=== PATIENT | female | born 1985 | race American Indian/Alaskan Native ===

== ENCOUNTER 2017-04-05 21:18 | Emergency (ER) | payer BC ==
[2017-04-05] MEDS ORDERED: MORPHINE SULFATE 10 MG/ML INJ IV ONE (21:46)
[2017-04-05] MEDS ORDERED: ONDANSETRON HCL INJ/PF 4 MG/2 ML SDV IV ONE (21:46)
[2017-04-05] MEDS ORDERED: NORMAL SALINE 1000 ML 1,000 ML IV ONE (21:46)
--- NOTE | 2017-04-05 21:51 | ER Document Report ---
ED GI/ - General Mode of Arrival: Ambulatory Information source: Patient TRAVEL OUTSIDE OF THE [place] IN LAST 30 DAYS: No - HPI Patient complains to provider of: Abdominal pain Associated symptoms: Other - See above <CALLI LEE - Last Filed: 04/05/17 22:06> <HAMIDA YANES - Last Filed: 04/06/17 00:17> - General Chief Complaint: Abdominal Pain Stated Complaint: ABDOMINAL PAIN Notes: Patient is a 31 year old female who presents to the emergency department complaining of left lower quadrant abdominal pain onset 3 days ago. Patient states the pain has been worsening and she started vomiting this morning with the last episode about 30 minutes prior to arrival. Patient denies nausea and believes the vomiting is due to the pain. Patient's last menstrual cycle was 3 months ago. Patient is currently taking a control pill and metronidazole gel for BV. Patient denies a history of ovarian cysts. (CALLI LEE) - Related Data Allergies/Adverse Reactions: Penicillins Allergy (Verified 04/05/17 21:24) Past Medical History - General Information source: Patient - Social History Smoking Status: Current Every Day Smoker Cigarette use (# per day): Yes - 2 Family History: Reviewed & Not Pertinent Patient has suicidal ideation: No Patient has homicidal ideation: No - Medical History Medical History: Negative Surgical Hx: Negative <CALLI LEE - Last Filed: 04/05/17 22:06> Review of Systems - Review of Systems Constitutional: No symptoms reported EENT: No symptoms reported Cardiovascular: No symptoms reported Respiratory: No symptoms reported Gastrointestinal: See HPI, Abdominal pain, Vomiting. denies: Nausea Genitourinary: No symptoms reported Female Genitourinary: No symptoms reported Musculoskeletal: No symptoms reported Skin: No symptoms reported Hematologic/Lymphatic: No symptoms reported Neurological/Psychological: No symptoms reported -: Yes All other systems reviewed and negative <CALLI LEE - Last Filed: 04/05/17 22:06> Physical Exam - Vital signs Interpretation: Normal - General General appearance: Alert, Other - appears uncomfortable - HEENT Head: Normocephalic, Atraumatic - Respiratory Respiratory status: No respiratory distress Chest status: Nontender Breath sounds: Normal Chest palpation: Normal - Cardiovascular Rhythm: Regular Heart sounds: Normal auscultation Murmur: No - Abdominal Inspection: Normal Distension: No distension Bowel sounds: Normal Tenderness: Tender - Exquisitely tender to palpation of left pelvic area. Not tender on the right but patient remained tense during exam so difficult to tell , Guarding Organomegaly: No organomegaly - Extremities General upper extremity: Normal inspection General lower extremity: Normal inspection - Neurological Neuro grossly intact: Yes Cognition: Normal Orientation: AAOx4 [place] Coma Scale Eye Opening: Spontaneous [place] Coma Scale Verbal: Oriented [place] Coma Scale Motor: Obeys Commands [place] Coma Scale Total: 15 Speech: Normal - Psychological Associated symptoms: Normal affect, Normal mood - Skin Skin Temperature: Warm Skin Moisture: Dry Skin Color: Normal <CALLI LEE - Last Filed: 04/05/17 22:06> - Genitourinary External exam: Normal Speculum exam: Cervix closed, Vaginal discharge - Heavy cottage cheese type vaginal discharge. No cervical discharge noted within the other discharge was wiped away. Vaginal bleeding: None Bimanuel exam: Cervical motion tender - Cervical motion and palpation tenderness., Adnexal tenderness - Left adnexa is exquisitely tender, right side is not tender. <HAMIDA YANES - Last Filed: 04/06/17 00:17> - Vital signs Vitals: Temp Pulse Resp BP Pulse Ox 97.9 F 106 H 18 147/94 H 98 04/05/17 21:21 04/05/17 21:21 04/05/17 21:21 04/05/17 21:21 04/05/17 21:21 Course - Laboratory Result Diagrams: 04/05/17 22:06 04/05/17 22:06 - Diagnostic Test Radiology reviewed: Image reviewed, Reports reviewed - Ultrasound had difficulty visualizing the ovaries, but there was no obvious abnormality. <HAMIDA YANES - Last Filed: 04/06/17 00:17> - Vital Signs Vital signs: Temp Pulse Resp BP Pulse Ox 97.9 F 106 H 18 147/94 H 98 04/05/17 21:21 04/05/17 21:21 04/05/17 21:21 04/05/17 21:21 04/05/17 21:21 - Laboratory Laboratory results interpreted by tn: 04/05/17 04/05/17 04/05/17 22:06 22:06 23:00 WBC 11.3 H ALT 62 H Urine Urobilinogen 2.0 H Discharge <CALLI LEE - Last Filed: 04/05/17 22:06> <HAMIDA YANES - Last Filed: 04/06/17 00:17> - Discharge Clinical Impression: Pelvic inflammatory disease (PID) Condition: Stable Disposition: HOME, SELF-CARE Additional Instructions: Pelvic Inflammatory Disease: You most likely have pelvic inflammatory disease (PID). This is an infection of the fallopian tubes and surrounding areas of the pelvis. Symptoms are usually pelvic pain and discharge. The infection can do permanent damage to the tubes and ovaries. It should be taken very seriously. Treatment is antibiotics, which may be given by vein or by injection if the infection seems serious. It's important that you receive all recommended medication. Condoms help prevent spread of this infection to others. If a culture shows gonorrhea or chlamydia organisms, the law requires that this be reported to the health department. Call the doctor or return at once if you develop increasing fever, rash, severe pelvic pain, vaginal bleeding (other than your period), or problems with your bladder or bowels. TAKE THE MEDICATION PRESCRIBED. IF THE CULTURES ARE POSITIVE, YOU WILL BE NOTIFIED. FOLLOW UP WITH [facility] OR YOUR PRIMARY CARE PROVIDER IF NOT IMPROVING. RETURN TO THE EMERGENCY ROOM IF ANY NEW OR WORSENING SYMPTOMS. Prescriptions: Doxycycline Hyclate 100 mg PO BID #14 tablet Hydrocodone/Acetaminophen [Hydrocodon-Acetaminophen 5-325] 1 each PO Q4 PRN #15 tablet PRN Reason: Referrals: [facility] [Provider Group] - Follow up as needed Scribe Attestation: 04/06/17 00:17 I personally performed the services described in the documentation, reviewed and edited the documentation which was dictated to the scribe in my presence, and it accurately records my words and actions. (HAMIDA YANES) Scribe Documentation - Scribe Written by Michael:: michael Cook, 04/05/17, 0346 acting as scribe for :: Betsy <CALLI LEE - Last Filed: 04/05/17 22:06>
[2017-04-05 22:32] LABS: ABSOLUTE BASOPHILS # (AUTO) 0.1 10^3/uL (0.0-0.2); ABSOLUTE EOSINOPHILS # (AUTO) 0.1 10^3/uL (0.0-0.6); ABSOLUTE LYMPHOCYTES (AUTO) 2.6 10^3/uL (0.5-4.7); ABSOLUTE MONOCYTES (AUTO) 0.8 10^3/uL (0.1-1.4); ABSOLUTE NEUT (AUTO) 7.8 10^3/uL (1.7-8.2); EOSINOPHILS % (AUTO) 0.8 % (0-6); HEMATOCRIT 38.3 % (36.0-47.0); HEMOGLOBIN 12.9 g/dL (12.0-15.5); HGB HCT DIFFERENCE 0.4; LYMPHOCYTES % (AUTO) 22.7 % (13-45); MEAN CORPUSCULAR HEMOGLOBIN 30.8 pg (27.0-33.4); MEAN CORPUSCULAR HGB CONC 33.5 g/dL (32.0-36.0); MEAN CORPUSCULAR VOLUME 92 fl (80-97); MONOCYTES % (AUTO) 6.8 % (3-13); RED BLOOD COUNT 4.18 10^6/uL (3.72-5.28); RED CELL DISTRIBUTION WIDTH 13.3 % (11.5-14.0); SEGMENTED NEUTROPHILS % (AUTO) 68.7 % (42-78); WHITE BLOOD COUNT 11.3 10^3/uL (4.0-10.5)
[2017-04-05 22:49] LABS: ALANINE AMINOTRANSFERASE 62 U/L (9-52); ALBUMIN 3.9 g/dL (3.5-5.0); ALKALINE PHOSPHATASE 58 U/L (38-126); ANION GAP 11 (5-19); ASPARTATE AMINO TRANSFERASE 35 U/L (14-36); BILIRUBIN,DIRECT 0.3 mg/dL (0.0-0.4); BILIRUBIN,TOTAL 0.9 mg/dL (0.2-1.3); BLOOD UREA NITROGEN 7 mg/dL (7-20); CALCIUM 9.6 mg/dL (8.4-10.2); CARBON DIOXIDE 25 mmol/L (22-30); CHLORIDE 105 mmol/L (98-107); CREATININE RESULT 0.73 mg/dL (0.52-1.25); GLUCOSE 80 mg/dL (75-110); POTASSIUM 4.3 mmol/L (3.6-5.0); SODIUM 140.5 mmol/L (137-145); TOTAL PROTEIN 6.7 g/dL (6.3-8.2)
[2017-04-05 23:29] LABS: APPEARANCE,URINE CLEAR; BILIRUBIN,URINE NEGATIVE (NEGATIVE); GLUCOSE, URINE NEGATIVE (NEGATIVE); KETONES,URINE NEGATIVE (NEGATIVE); LEUKOCYTE ESTERASE,URINE NEGATIVE (NEGATIVE); NITRITE,URINE NEGATIVE (NEGATIVE); PROTEIN,URINE NEGATIVE (NEGATIVE); URINE SPECIFIC GRAVITY 1.014
[2017-04-06] MEDS ORDERED: AZITHROMYCIN 250 MG TABLET PO ONE (00:12)
[2017-04-06] MEDS ORDERED: HYDROCODONE/ACETAMINOPHEN 5-325 MG 6 TAB/DSPK PO PRN (00:13)
[2017-04-06 01:07] VITALS: BP 118/76
[2017-04-06 01:41] LABS: CHLAM PCR NOT DETECTED (NOT DETECT)
== END 2017-04-06 01:09 | disposition home or self-care (01) ==
LOC: ER 21:18
DX: N73.9 Female pelvic inflammatory disease, unspecified (principal); N76.0 Acute vaginitis; B96.89 Other specified bacterial agents as the cause of diseases classified elsewhere; R10.32 Left lower quadrant pain; R11.11 Vomiting without nausea; Z79.3 Long term (current) use of hormonal contraceptives; Z88.0 Allergy status to penicillin; F17.210 Nicotine dependence, cigarettes, uncomplicated
CPT/HCPCS: 99284; 96374; 96375; 36415; 87210; 84703; 85025; 80053; 81001; 87491; 87591; 76830; 93976; J2270; J2405

== ENCOUNTER 2018-02-23 00:22 | Emergency (ER) | payer SELFPAY ==
[2018-02-23] MEDS ORDERED: METHYLPREDNISOLONE INJ 125 MG/2 ML SDV IV ONE (02:17)
[2018-02-23] MEDS ORDERED: IPRATROPIUM/ALBUTEROL 0.5-2.5 MG/3 ML AMPUL NEB ONE ×2 (02:17)
--- NOTE | 2018-02-23 02:20 | ER Document Report ---
ED Respiratory Problem - General Chief Complaint: Sinus congestion, breathing problem Stated Complaint: DIFFICULTY BREATHING Time Seen by Provider: 02/23/18 02:14 Notes: Patient is a 32-year-old female that comes emergency department for chief complaint of difficulty breathing and cough. She states she did not sick for weeks, she has been seen multiple times by urgent care and prescribed steroids, antibiotics, and inhalers without resolution of her symptoms. She denies ever smoking, she denies history of asthma, she states other than as needed muscle relaxer she does not take any medications. LMP within the past month. TRAVEL OUTSIDE OF THE [place] IN LAST 30 DAYS: No - Related Data Allergies/Adverse Reactions: Penicillins Allergy (Verified 10/07/17 16:06) Past Medical History - General Information source: Patient - Social History Smoking Status: Never Smoker Frequency of alcohol use: None Drug Abuse: None Lives with: Alone Family History: Reviewed & Not Pertinent Renal/ Medical History: Denies: Hx Peritoneal Dialysis Past Surgical History: Reports: Hx Tonsillectomy - Immunizations Hx Diphtheria, Pertussis, Tetanus Vaccination: Yes Review of Systems - Review of Systems Constitutional: See HPI EENT: See HPI Cardiovascular: No symptoms reported Respiratory: See HPI Gastrointestinal: No symptoms reported Genitourinary: No symptoms reported Female Genitourinary: No symptoms reported Musculoskeletal: No symptoms reported Skin: No symptoms reported Hematologic/Lymphatic: No symptoms reported Neurological/Psychological: No symptoms reported Physical Exam - Vital signs Vitals: Temp Pulse Resp BP Pulse Ox 98.5 F 70 18 126/104 H 87 L 02/23/18 02:09 02/23/18 02:09 02/23/18 02:09 02/23/18 02:09 02/23/18 02:09 - General General appearance: Anxious In distress: Mild - HEENT Head: Normocephalic, Atraumatic Eyes: Normal Conjunctiva: Normal Extraocular movements intact: Yes Eyelashes: Normal Pupils: PERRL Sinus: Maxillary - Bilateral maxillary sinus tenderness Nasal: Normal Mouth/Lips: Normal Mucous membranes: Normal Pharynx: Normal Neck: Normal - Respiratory Respiratory status: Respiratory distress, Tachypnea Breath sounds: Nonproductive cough, Rhonchi, Wheezing - Cardiovascular Rhythm: Regular. No: Tachycardia Heart sounds: Normal auscultation, S1 appreciated, S2 appreciated - Abdominal Inspection: Normal Tenderness: Nontender. No: Tender - Back Back: Normal, Nontender. No: Tender - Extremities General upper extremity: Normal inspection, Nontender, Normal strength, Normal temperature General lower extremity: Normal inspection, Nontender, Normal strength, Normal temperature. No: Edema - Neurological Neuro grossly intact: Yes Cognition: Normal Orientation: AAOx4 [place] Coma Scale Eye Opening: Spontaneous [place] Coma Scale Verbal: Oriented [place] Coma Scale Motor: Obeys Commands [place] Coma Scale Total: 15 Speech: Normal Motor strength normal: LUE, RUE, LLE, RLE Sensory: Normal - Psychological Associated symptoms: Anxious - Skin Skin Temperature: Warm Skin Moisture: Dry Skin Color: Normal Course - Re-evaluation Re-evalutation: Patient hypoxic on initial presentation at 87% on room air according to vital signs recorded, on my exam she has tachypnea, labored breathing, she is in moderate respiratory distress. Patient was placed on oxygen, with the oxygen she began to improve, respiratory rate improved, oxygen saturation normalized. Patient did have some wheezing and rhonchi initially. Will give treatments, workup pending, will monitor closely. 02/23/18 On reevaluation patient's wheezing has resolved, she is well-appearing, she does have a regular cough but otherwise has no other symptoms. She does easily become emotional and anxious but she is reassured easily. Chest x-ray unremarkable, CBC, chemistry, hCG unremarkable. D-dimer is not elevated. Venous blood gas suggests mild hyperventilation. Patient ambulated without any difficulty, no hypoxia on ambulation, no tachycardia. On reexamination patient stating that her sinuses are hurting and she is getting a migraine, she requests treatment for this for before she goes home. She was provided with this. She did not have any neurological deficits, headache resolved. Discussed treatment, patient requests Augmentin, she states she is allergic to penicillin but states she has taken Augmentin in the past without any difficulty. Patient given an initial treatment here and had no reaction. Discussed follow-up, medications, return precautions. Patient states understanding and agreement. - Vital Signs Vital signs: Temp Pulse Resp BP Pulse Ox 98.5 F 70 26 H 92/71 L 99 02/23/18 02:09 02/23/18 02:09 02/23/18 05:00 02/23/18 04:01 02/23/18 05:00 - Laboratory Result Diagrams: 02/23/18 02:25 02/23/18 02:25 Laboratory results interpreted by me: 02/23/18 02/23/18 02/23/18 02:25 02:25 02:25 Seg Neutrophils % 85.7 H Lymphocytes % 12.6 L Monocytes % 0.8 L VBG pH 7.49 H VBG pCO2 29.4 L Glucose 122 H Calcium 10.7 H Total Bilirubin 1.4 H Albumin 5.1 H Discharge - Discharge Clinical Impression: Cough, Bronchitis Sinusitis Qualifiers: Sinusitis location: maxillary Chronicity: acute Recurrence: non-recurrent Qualified Code(s): J01.00 - Acute maxillary sinusitis, unspecified Disposition: HOME, SELF-CARE Additional Instructions: Your chest x-ray does not show pneumonia, your workup does not show any concerning abnormalities. Your evaluation is consistent with bronchitis and sinusitis. You have been provided with Augmentin antibiotic, take this as prescribed, I recommend probiotic supplement to avoid diarrhea. Take Zofran if needed along with this. You have been placed on a short tapering dose of prednisone for bronchitis, take as directed to completion, this is quickly downtrending because of your recent prednisone use. Take the prescribed syrup if needed for cough, stay hydrated, rest. Follow-up with primary care. Return if you worsen including spiking fever, difficulty breathing, or any other concerning or worsening symptoms. Prescriptions: Hydrocodone Bit/Homatropine [Hycodan Syrup 5-1.5 mg/5 ml Ud Cup] 5 ml PO Q4HP PRN #120 ml PRN Reason: Amox Tr/Potassium Clavulanate [Augmentin 875-125 Tablet] 1 tab PO BID 7 Days tablet Ondansetron [Zofran Odt 4 mg Tablet] 1 - 2 tab PO Q4H PRN #15 tab.rapdis PRN Reason: For Nausea/Vomiting Prednisone [Deltasone 10 mg Tablet] 10 mg PO ASDIR PRN #21 tablet PRN Reason: Forms: Return to Work
[2018-02-23] MEDS: MAGNESIUM SULFATE/D5W 1 GM/100 ML RTUPB IV SCH ×2 (02:27→02:54)
[2018-02-23 02:42] LABS: VENOUS BLOOD BASE EXCESS -0.2 mmol/L; VENOUS BLOOD HCO3 21.9 mmol/L (20-32); VENOUS BLOOD PCO2 29.4 mmHg (35-63); VENOUS BLOOD PH 7.49 (7.30-7.42)
[2018-02-23 02:43] LABS: ABSOLUTE BASOPHILS # (AUTO) 0.1 10^3/uL (0.0-0.2); ABSOLUTE LYMPHOCYTES (AUTO) 1.1 10^3/uL (0.5-4.7); ABSOLUTE MONOCYTES (AUTO) 0.1 10^3/uL (0.1-1.4); ABSOLUTE NEUT (AUTO) 7.4 10^3/uL (1.7-8.2); BASOPHILS % (AUTO) 0.6 % (0-2); EOSINOPHILS % (AUTO) 0.3 % (0-6); HEMATOCRIT 44.9 % (36.0-47.0); HEMOGLOBIN 15.3 g/dL (12.0-15.5); LYMPHOCYTES % (AUTO) 12.6 % (13-45); MEAN CORPUSCULAR HEMOGLOBIN 31.9 pg (27.0-33.4); MEAN CORPUSCULAR HGB CONC 34.2 g/dL (32.0-36.0); MEAN CORPUSCULAR VOLUME 93 fl (80-97); MONOCYTES % (AUTO) 0.8 % (3-13); PLATELET COUNT 332 10^3/uL (150-450); RED CELL DISTRIBUTION WIDTH 13.5 % (11.5-14.0); SEGMENTED NEUTROPHILS % (AUTO) 85.7 % (42-78); TOTAL CELLS COUNTED % (AUTO) 100 %; WHITE BLOOD COUNT 8.6 10^3/uL (4.0-10.5)
--- NOTE | 2018-02-23 02:51 | RADIOLOGY REPORT (SQ) ---
EXAM DESCRIPTION: CHEST SINGLE VIEW CLINICAL HISTORY: 32 years Female, hypoxia, short of breath COMPARISON: None. NUMBER OF VIEWS/TECHNIQUE: 1/AP LIMITATIONS: None. FINDINGS: Normal lung volume, clear parenchyma, normal cardiac silhouette, and intact bony thorax. IMPRESSION: No acute cardiopulmonary findings.
[2018-02-23 02:55] LABS: ALANINE AMINOTRANSFERASE 34 U/L (9-52); ALBUMIN 5.1 g/dL (3.5-5.0); ALKALINE PHOSPHATASE 77 U/L (38-126); ANION GAP 14 (5-19); ASPARTATE AMINO TRANSFERASE 28 U/L (14-36); BILIRUBIN,DIRECT 0.2 mg/dL (0.0-0.4); BILIRUBIN,TOTAL 1.4 mg/dL (0.2-1.3); BLOOD UREA NITROGEN 10 mg/dL (7-20); CALCIUM 10.7 mg/dL (8.4-10.2); CARBON DIOXIDE 23 mmol/L (22-30); CHLORIDE 104 mmol/L (98-107); GLUCOSE 122 mg/dL (75-110); POTASSIUM 4.5 mmol/L (3.6-5.0); SODIUM 141.1 mmol/L (137-145)
[2018-02-23 04:21] VITALS: BP 92/71
[2018-02-23] MEDS ORDERED: HYDROCODONE/ACETAMINOPHEN 5-325 MG (6 TAB/ER DISP) PO PRN (04:43)
[2018-02-23] MEDS ORDERED: HYDROCODONE/ACETAMINOPHEN 5-325 MG TABLET PO ONE (04:43)
[2018-02-23] MEDS ORDERED: AMOXICILLIN TR/POT CLAVULANATE 500-125 MG TAB PO ONE (05:28)
[2018-02-23] MEDS ORDERED: KETOROLAC TROMETHAMINE INJ/PF 30 MG/1 ML SDV IV ONE (05:28)
[2018-02-23] MEDS ORDERED: METOCLOPRAMIDE HCL INJ/PF 10 MG/2 ML SDV IV ONE (05:28)
[2018-02-23] MEDS ORDERED: DIPHENHYDRAMINE HCL 50 MG/ML VIAL IV ONE (05:28)
== END 2018-02-23 06:27 | disposition home or self-care (01) ==
LOC: ER 00:22
DX: J40 Bronchitis, not specified as acute or chronic (principal); J01.00 Acute maxillary sinusitis, unspecified; R09.81 Nasal congestion; R06.9 Unspecified abnormalities of breathing; R05 Cough; R09.02 Hypoxemia; R06.82 Tachypnea, not elsewhere classified
CPT/HCPCS: 94640 ×2; 99285; 96375; 96365; 36415; 87040; 84703; 85025; 80053; 85379; 82803; 71045; J1200; J2930; J1885; J2765; J3475; J7620

== ENCOUNTER 2018-03-22 16:16 | Emergency (ER) | payer SELFPAY ==
--- NOTE | 2018-03-22 17:28 | ER Document Report ---
ED General - General Chief Complaint: NAIDU, dizziness Stated Complaint: FALL/HEAD AND FACIAL PAIN, DIZZINESS Time Seen by Provider: 03/22/18 17:27 Mode of Arrival: Ambulatory Information source: Patient Notes: 32-year-old female presents with complaints of headache facial pain 1 week after having syncopal episode striking her head. Patient notes she was in the shower when this occurred, she states she was not out long enough for the water to get cold, she does note that the swelling has worsened in her cheek now TRAVEL OUTSIDE OF THE [place] IN LAST 30 DAYS: No - HPI Onset: Last week Onset/Duration: Persistent Quality of pain: Achy Severity: Mild Pain Level: 1 Associated symptoms: Headache Exacerbated by: Denies Relieved by: Denies Similar symptoms previously: No Recently seen / treated by doctor: No - Related Data Allergies/Adverse Reactions: Penicillins Allergy (Verified 10/07/17 16:06) Past Medical History - Social History Smoking Status: Never Smoker Cigarette use (# per day): No Chew tobacco use (# tins/day): No Smoking Education Provided: No Frequency of alcohol use: Occasional Drug Abuse: Marijuana Family History: Reviewed & Not Pertinent Patient has suicidal ideation: No Patient has homicidal ideation: No Renal/ Medical History: Denies: Hx Peritoneal Dialysis Past Surgical History: Reports: Hx Tonsillectomy - Immunizations Hx Diphtheria, Pertussis, Tetanus Vaccination: Yes Review of Systems - Review of Systems Notes: REVIEW OF SYSTEMS: CONSTITUTIONAL : Denies fever, chills, or sweats. Denies recent illness. EENT: Denies eye, ear, throat, or mouth pain or symptoms. Denies nasal or sinus congestion or discharge. Denies throat, tongue, or mouth swelling or difficulty swallowing. CARDIOVASCULAR: Denies chest pain. Denies palpitations or racing or irregular heart beat. Denies ankle edema. RESPIRATORY: Denies cough, cold, or chest congestion. Denies shortness of breath, difficulty breathing, or wheezing. GASTROINTESTINAL: Denies abdominal pain or distention. Denies nausea, vomiting , or diarrhea. Denies blood in vomitus, stools, or per rectum. Denies black, tarry stools. Denies constipation. GENITOURINARY: Denies difficulty urinating, painful urination, burning, frequency, blood in urine, or discharge. FEMALE GENITOURINARY: Denies vaginal bleeding, heavy or abnormal periods, irregular periods. Denies vaginal discharge or odor. MUSCULOSKELETAL: Denies back or neck pain or stiffness. Denies joint pain or swelling. SKIN: Admits to bruising HEMATOLOGIC : Admits to bruising and swelling of the face LYMPHATIC: Denies swollen, enlarged glands. NEUROLOGICAL: Admits headache PSYCHIATRIC: Denies anxiety or stress. Denies depression, suicidal ideation, or homicidal ideation. ALL OTHER SYSTEMS REVIEWED AND NEGATIVE. PHYSICAL EXAMINATION: GENERAL: Well-appearing, well-nourished and in no acute distress. HEAD: Superficial laceration healing well right frontal ecchymosis around the orbit there is mild swelling of the right cheek EYES: Pupils equal round and reactive to light, extraocular movements intact, conjunctiva are normal. ENT: Nares patent, oropharynx clear without exudates. Moist mucous membranes. NECK: Normal range of motion, supple without lymphadenopathy LUNGS: Breath sounds clear to auscultation bilaterally and equal. No wheezes rales or rhonchi. HEART: Regular rate and rhythm without murmurs ABDOMEN: Soft, nontender, nondistended abdomen. No guarding, no rebound. No masses appreciated. Female : deferred Musculoskeletal: Normal range of motion, no pitting or edema. No cyanosis. NEUROLOGICAL: Cranial nerves grossly intact. Normal speech, normal gait. Normal sensory, motor exams PSYCH: Normal mood, normal affect. SKIN: Ecchymosis Dictation was performed using [employer] voice recognition software Physical Exam - Vital signs Vitals: Temp Pulse Resp BP Pulse Ox 97.9 F 107 H 17 121/81 100 03/22/18 16:41 03/22/18 16:41 03/22/18 16:41 03/22/18 16:41 03/22/18 16:41 Course - Re-evaluation Re-evalutation: 03/22/18 17:37 Patient's presentation is most consistent with gravity bringing the edema more to the cheek and causing the facial nerve impingement, patient overall looks well is in no distress 03/22/18 18:50 Orbital floor fracture noted on CT, this would be consistent with the patient's injury, she has no impingement of the rectus muscles Patient will be given ENT follow-up is otherwise stable for discharge she states she is safe at home After performing a Medical Screening Examination, I estimate there is LOW risk for INTRACRANIAL HEMORRHAGE, UNSTABLE SPINE FRACTURE, CENTRAL CORD SYNDROME, CAUDA EQUINA, THORACIC AORTIC DISSECTION, PNEUMOTHORAX, PERFORATED BOWEL, RUPTURED ABDOMINAL AORTIC ANEURYSM, ACUTE TENDON RUPTURE, COMPARTMENT SYNDROME, or OPEN FRACTURE, thus I consider the discharge disposition reasonable. Also, there is no evidence or peritonitis, sepsis, or toxicity. I have reevaluated this patient multiple times and no significant life threatening changes are noted. The patient and I have discussed the diagnosis and risks, and we agree with discharging home to follow-up with their primary doctor with the understanding that symptoms and presentations can change. We also discussed returning to the Emergency Department immediately if new or worsening symptoms occur. We have discussed the symptoms which are most concerning (e.g., bloody stool, fever, changing or worsening pain, vomiting) that necessitate immediate return. - Vital Signs Vital signs: Temp Pulse Resp BP Pulse Ox 99.3 F 81 16 124/86 H 100 03/22/18 18:41 03/22/18 18:41 03/22/18 18:41 03/22/18 18:41 03/22/18 18:41 - Diagnostic Test Radiology reviewed: Image reviewed - CT head without contrast notes orbital fracture on the right, Reports reviewed Discharge - Discharge Clinical Impression: Facial swelling Orbital floor fracture Qualifiers: Encounter type: initial encounter Fracture type: closed Laterality: right Qualified Code(s): S02.31XA - Fracture of orbital floor, right side, initial encounter for closed fracture Condition: Stable Disposition: HOME, SELF-CARE Instructions: Eye Socket Trauma ([facility]) Prescriptions: Hydrocodone/Acetaminophen [[place] 5-325 mg Tablet] 1 tab PO Q6 #10 tablet Forms: Return to Work Referrals: BONI FUCHS DO [ASSOCIATE] - Follow up in 1 week
--- NOTE | 2018-03-22 18:23 | RADIOLOGY REPORT (SQ) ---
EXAM DESCRIPTION: CT HEAD WITHOUT COMPLETED DATE/TIME: 03/22/2018 6:11 pm REASON FOR STUDY: head ache , head injury 1 week ago COMPARISON: None. TECHNIQUE: Axial images acquired through the brain without intravenous contrast. Images reviewed wi th bone, brain and subdural windows. Additional sagittal and coronal reconstructions were generated. Images stored on PACS. All CT scanners at this facility use dose modulation, iterative reconstruction, and/or weight based d osing when appropriate to reduce radiation dose to as low as reasonably achievable (ALARA). [facility]: Dose Right [facility]: CareDose [facility]: Dose Right [facility]: Teradose 4D [facility]: Smart [email or web address] RADIATION DOSE: CT Rad equipment meets quality standard of care and radiation dose reduction techniq ues were employed. CTDIvol: 53.2 mGy. DLP: 991 mGy-cm. mGy. LIMITATIONS: None. FINDINGS: VENTRICLES: Normal size and contour. CEREBRUM: No masses. No hemorrhage. No midline shift. No evidence for acute infarction. Normal gra y/white matter differentiation. No areas of low density in the white matter. CEREBELLUM: No masses. No hemorrhage. No alteration of density. No evidence for acute infarction. EXTRAAXIAL SPACES: No fluid collections. No masses. ORBITS AND GLOBE: There appears to be a fracture of the orbital floor on the right see images 17 thro ugh 20 series 401. CALVARIUM: No fracture. PARANASAL SINUSES: There is an air-fluid level in the right maxillary sinus. SOFT TISSUES: No mass or hematoma. OTHER: No other significant finding. IMPRESSION: There appears to be a fracture of the orbital floor on the right with an air-fluid level in the right maxillary sinus. There is no evidence of entrapment of the inferior rectus muscle. Co rrelate clinically. EVIDENCE OF ACUTE STROKE: NO. COMMENT: Quality ID # [id number]: Final reports with documentation of one or more dose reduction techniques (e.g., Automated exposure control, adjustment of the mA and/or kV according to patient size, use of iterative reconstruction technique) TECHNICAL DOCUMENTATION: JOB ID: [id number] [employer]- All Rights Reserved Reading location - IP/workstation name: [email or web address]
[2018-03-22 18:42] VITALS: BP 124/86
== END 2018-03-22 19:46 | disposition home or self-care (01) ==
LOC: ER 16:16
DX: S02.31XA Fracture of orbital floor, right side, initial encounter for closed fracture (principal); R22.0 Localized swelling, mass and lump, head; R51 Headache; R42 Dizziness and giddiness; R55 Syncope and collapse; W18.30XA Fall on same level, unspecified, initial encounter; Z88.0 Allergy status to penicillin
CPT/HCPCS: 70450; 99284

== ENCOUNTER 2018-04-24 15:35 | Emergency (ER) | payer SELFPAY ==
--- NOTE | 2018-04-24 15:59 | ER Document Report ---
ED Medical Screen (RME) - General Chief Complaint: Nausea/Vomiting Stated Complaint: ABDOMINAL PAIN Time Seen by Provider: 04/24/18 15:44 Notes: RAPID MEDICAL EVALUATION DISCLOSURE I have seen this patient as part of a Rapid Medical Evaluation and, if applicable, placed any initially appropriate orders. The patient will be seen and fully evaluated, including a full history and physical exam, by a provider ( in Main ED or Fast Track) when a room becomes available. 32-year-old female PMH PID here with complaints of epigastric and left upper quadrant abdominal pain and suprapubic pain as well as vaginal discharge over the past few days. She was diagnosed with chlamydia last month and was treated at the urgent care however did not abstain from sex immediately thereafter and later found out that her and her (also infected) partner should have waited several days before engaging in sexual intercourse to ensure the medication "kicked in". She is here because she is afraid she has gonorrhea or chlamydia again. The pain in the epigastrium is not worse with eating however she states she has not been eating a whole lot in the first place. She denies any previous intra-abdominal surgeries. EXAM Minimal to mild epigastric and left upper quadrant TTP Mild to moderate suprapubic TTP TRAVEL OUTSIDE OF THE [place] IN LAST 30 DAYS: No - Related Data Allergies/Adverse Reactions: Penicillins Allergy (Verified 10/07/17 16:06) Past Medical History Pulmonary Medical History: Reports: Hx Pneumonia Renal/ Medical History: Denies: Hx Peritoneal Dialysis Past Surgical History: Reports: Hx Tonsillectomy - Immunizations Hx Diphtheria, Pertussis, Tetanus Vaccination: Yes History of Influenza Vaccine for 08/2017 - 01/2018 Season: No Physical Exam - Vital signs Vitals: Temp Pulse Resp BP Pulse Ox 98.8 F 117 H 16 122/88 H 98 04/24/18 15:42 04/24/18 15:42 04/24/18 15:42 04/24/18 15:42 04/24/18 15:42 Course - Vital Signs Vital signs: Temp Pulse Resp BP Pulse Ox 98.8 F 117 H 16 122/88 H 98 04/24/18 15:42 04/24/18 15:42 04/24/18 15:42 04/24/18 15:42 04/24/18 15:42
--- NOTE | 2018-04-24 16:36 | ER Document Report ---
ED GI/ - General Chief Complaint: Nausea/Vomiting Stated Complaint: ABDOMINAL PAIN Time Seen by Provider: 04/24/18 15:44 Mode of Arrival: Ambulatory Information source: Patient Notes: 32-year-old female is complaining of recurrent pelvic pain with vaginal discharge. She was treated for chlamydia 2 weeks ago with a azithromycin 1 g p.o. The gonorrhea was negative. She engaged with a treated sexual partner but then when the pain started back up again she is concerned that she got the chlamydia again. No dysuria frequency urgency. No fever or chills. No history of endometriosis or ovarian cysts. TRAVEL OUTSIDE OF THE [place] IN LAST 30 DAYS: No - Related Data Allergies/Adverse Reactions: Penicillins Allergy (Verified 04/24/18 19:29) Past Medical History - General Information source: Patient - Social History Smoking Status: Current Some Day Smoker Chew tobacco use (# tins/day): No Frequency of alcohol use: Social Drug Abuse: Marijuana Lives with: Spouse/Significant other Family History: Reviewed & Not Pertinent Patient has suicidal ideation: No Patient has homicidal ideation: No Pulmonary Medical History: Reports: Hx Pneumonia Renal/ Medical History: Denies: Hx Peritoneal Dialysis Past Surgical History: Reports: Hx Tonsillectomy - Immunizations Hx Diphtheria, Pertussis, Tetanus Vaccination: Yes Review of Systems - Review of Systems Constitutional: No symptoms reported EENT: No symptoms reported Cardiovascular: No symptoms reported Respiratory: No symptoms reported Gastrointestinal: No symptoms reported Genitourinary: No symptoms reported Female Genitourinary: See HPI Musculoskeletal: No symptoms reported Skin: No symptoms reported Hematologic/Lymphatic: No symptoms reported Neurological/Psychological: No symptoms reported Physical Exam - Vital signs Vitals: Temp Pulse Resp BP Pulse Ox 98.8 F 117 H 16 122/88 H 98 04/24/18 15:42 04/24/18 15:42 04/24/18 15:42 04/24/18 15:42 04/24/18 15:42 Interpretation: Normal - General General appearance: Appears well, Alert In distress: None - HEENT Head: Normocephalic, Atraumatic Eyes: Normal Pupils: PERRL Pharynx: Normal Neck: Supple. No: Lymphadenopathy - Respiratory Respiratory status: No respiratory distress Chest status: Nontender Breath sounds: Normal Chest palpation: Normal - Cardiovascular Rhythm: Regular Heart sounds: Normal auscultation Murmur: No - Abdominal Inspection: Normal Distension: No distension Bowel sounds: Normal Tenderness: Tender - Mild suprapubic and left pelvic Organomegaly: No organomegaly - Genitourinary Notes: Self swabs - Back Back: Normal, Nontender. No: CVA tenderness - Extremities General upper extremity: Normal inspection, Nontender, Normal color, Normal ROM , Normal temperature General lower extremity: Normal inspection, Nontender, Normal color, Normal ROM , Normal temperature, Normal weight bearing. No: Paty's sign - Neurological Neuro grossly intact: Yes Cognition: Normal Orientation: AAOx4 Tuyet Coma Scale Eye Opening: Spontaneous [place]uyet Coma Scale Verbal: Oriented Tuy[place] Coma Scale Motor: Obeys Commands Tuyet Coma Scale Total: 15 Speech: Normal Motor strength normal: LUE, RUE, LLE, RLE Sensory: Normal - Psychological Associated symptoms: Normal affect, Normal mood - Skin Skin Temperature: Warm Skin Moisture: Dry Skin Color: Normal Skin irregularity: negative: Rash Course - Re-evaluation Re-evalutation: 04/24/18 18:30 Patient does not want to take doxycycline she wants a one-time dose for chlamydia and asked about whether the sexual partner can be treated without being seen and I explained to her that he would need to check in as a patient. I advised her to please call me back in 2 hours for the STD culture results. I will treat her with Flagyl 500 twice a day for a week for bacterial vaginosis. The urinalysis is negative. test is negative. There is no signs of abscess on the ultrasound, ovaries were not visualized and I explained this to the patient 04/24/18 18:42 04/24/18 21:08 Gonorrhea and Chlamydia are negative and the patient coming back and give her the results - Vital Signs Vital signs: Temp Pulse Resp BP Pulse Ox 98.8 F 84 17 113/77 99 04/24/18 15:42 04/24/18 19:20 04/24/18 19:20 04/24/18 19:20 04/24/18 19:20 - Laboratory Result Diagrams: 04/24/18 17:46 04/24/18 17:46 Laboratory results interpreted by me: 04/24/18 17:46 Chloride 108 H Total Bilirubin 1.4 H Discharge - Discharge Clinical Impression: Bacterial vaginosis, Pelvic pain, History of chlamydia Condition: Good Disposition: HOME, SELF-CARE Instructions: Azithromycin ([facility]), Ibuprofen (General) ([facility]), Metronidazole ([facility] ), Pelvic Pain ([facility]), Rocephin ([facility]) Additional Instructions: Call me in 2 hours for the STD culture results at [id number] Return to the emergency room a pelvic pain gets worse Take the Flagyl for 1 week for the bacterial vaginosis Did not have intercourse until the sexual partner is treated if your cultures are positive Prescriptions: Ibuprofen [Motrin 600 mg Tablet] 600 mg PO Q8HP PRN #30 tablet PRN Reason: Metronidazole [Flagyl 500 mg Tablet] 500 mg PO BID #14 tablet Forms: Return to Work Referrals: KRYSTLE VIDAL MD [ACTIVE STAFF] - Follow up as needed
[2018-04-24 17:00] LABS: APPEARANCE,URINE CLEAR; BILIRUBIN,URINE NEGATIVE (NEGATIVE); COLOR,URINE YELLOW; GLUCOSE, URINE NEGATIVE (NEGATIVE); KETONES,URINE NEGATIVE (NEGATIVE); LEUKOCYTE ESTERASE,URINE NEGATIVE (NEGATIVE); NITRITE,URINE NEGATIVE (NEGATIVE); PROTEIN,URINE NEGATIVE (NEGATIVE); URINE SPECIFIC GRAVITY 1.018; UROBILINOGEN,URINE NEGATIVE mg/dL (<2.0)
[2018-04-24 17:30] LABS: BACTERIA (WET MOUNT) 4+ BACTERIA SEEN; EPITHELIALS (WET MOUNT) 4+ EPITHELIALS SEEN; T.VAGINALIS (WET MOUNT) NO TRICHOMONAS SEEN; WBCS (WET MOUNT) 2+ WBCS SEEN; YEAST (WET MOUNT) NO YEAST SEEN
[2018-04-24] MEDS ORDERED: ONDANSETRON 4 MG TAB.RAPDIS PO ONE (17:54)
[2018-04-24] MEDS ORDERED: CEFTRIAXONE INJ 250 MG VIAL IM ONE (17:54)
[2018-04-24] MEDS ORDERED: DOXYCYCLINE HYCLATE 100 MG TABLET PO ONE (17:55)
[2018-04-24] MEDS ORDERED: AZITHROMYCIN 250 MG TABLET PO ONE (17:57)
[2018-04-24 18:07] LABS: ABSOLUTE BASOPHILS # (AUTO) 0.1 10^3/uL (0.0-0.2); ABSOLUTE LYMPHOCYTES (AUTO) 1.8 10^3/uL (0.5-4.7); ABSOLUTE MONOCYTES (AUTO) 0.5 10^3/uL (0.1-1.4); ABSOLUTE NEUT (AUTO) 6.3 10^3/uL (1.7-8.2); BASOPHILS % (AUTO) 0.8 % (0-2); EOSINOPHILS % (AUTO) 0.5 % (0-6); HEMOGLOBIN 13.6 g/dL (12.0-15.5); LYMPHOCYTES % (AUTO) 21.1 % (13-45); MEAN CORPUSCULAR VOLUME 94 fl (80-97); MONOCYTES % (AUTO) 5.4 % (3-13); PLATELET COUNT 264 10^3/uL (150-450); RED BLOOD COUNT 4.25 10^6/uL (3.72-5.28); RED CELL DISTRIBUTION WIDTH 13.1 % (11.5-14.0); SEGMENTED NEUTROPHILS % (AUTO) 72.2 % (42-78); TOTAL CELLS COUNTED % (AUTO) 100 %; WHITE BLOOD COUNT 8.7 10^3/uL (4.0-10.5)
[2018-04-24 18:30] LABS: ALANINE AMINOTRANSFERASE 27 U/L (9-52); ALBUMIN 4.2 g/dL (3.5-5.0); ALKALINE PHOSPHATASE 47 U/L (38-126); ANION GAP 11 (5-19); ASPARTATE AMINO TRANSFERASE 19 U/L (14-36); BILIRUBIN,DIRECT 0.2 mg/dL (0.0-0.4); BILIRUBIN,TOTAL 1.4 mg/dL (0.2-1.3); BLOOD UREA NITROGEN 12 mg/dL (7-20); CALCIUM 9.9 mg/dL (8.4-10.2); CARBON DIOXIDE 22 mmol/L (22-30); CHLORIDE 108 mmol/L (98-107); GLUCOSE 80 mg/dL (75-110); LIPASE 50.7 U/L (23-300); POTASSIUM 4.3 mmol/L (3.6-5.0); SODIUM 140.9 mmol/L (137-145); TOTAL PROTEIN 6.9 g/dL (6.3-8.2)
[2018-04-24] MEDS ORDERED: IBUPROFEN 600 MG TABLET PO ONE (18:39)
--- NOTE | 2018-04-24 18:40 | RADIOLOGY REPORT (SQ) ---
EXAM DESCRIPTION: U/S NON OB PEL TV W/DOPPLER COMPLETED DATE/TIME: 04/24/2018 6:19 pm REASON FOR STUDY: pelvic pank left more than right COMPARISON: 10/07/2017. TECHNIQUE: Dynamic and static grayscale images acquired of the pelvis via transvaginal approach and recorded on PACS. Additional selected color Doppler and spectral images recorded. LIMITATIONS: Unable to visualize the ovaries due to overlying bowel gas. FINDINGS: UTERUS: Contour normal. No mass. ENDOMETRIAL STRIPE: No focal or generalized thickening. No masses. CERVIX: No nabothian cysts. RIGHT OVARY AND DOPPLER: Obscured by bowel gas. LEFT OVARY AND DOPPLER: Obscured by bowel gas. FREE FLUID: None noted. OTHER: No other significant finding. MEASUREMENTS: UTERUS: 2.4 x 3.8 x 7.7 cm. ENDOMETRIAL STRIPE: 0.9 mm. RIGHT OVARY: Not visualized. LEFT OVARY: Not visualized. IMPRESSION: OVARIES NOT VISUALIZED. OTHERWISE UNREMARKABLE TRANSVAGINAL PELVIC ULTRASOUND. TECHNICAL DOCUMENTATION: JOB ID: [id number] [employer]- All Rights Reserved Rev Reading location - IP/workstation name: [email or web address]
[2018-04-24] MEDS ORDERED: ACETAMINOPHEN 325 MG TABLET PO ONE (18:45)
[2018-04-24] MEDS ORDERED: TRAMADOL HCL 50 MG TABLET PO ONE (18:45)
[2018-04-24 18:54] LABS: CHLAM PCR NOT DETECTED (NOT DETECT); GON PCR NOT DETECTED (NOT DETECT)
[2018-04-24] MEDS ORDERED: LIDOCAINE 1% INJ-PF (10 MG/ML) 30 ML SDV ONE (19:09)
[2018-04-24 19:29] VITALS: BP 113/77
== END 2018-04-24 19:35 | disposition home or self-care (01) ==
LOC: ER 15:35
DX: N76.0 Acute vaginitis (principal); B96.89 Other specified bacterial agents as the cause of diseases classified elsewhere; R10.2 Pelvic and perineal pain; R11.2 Nausea with vomiting, unspecified; F17.200 Nicotine dependence, unspecified, uncomplicated; Z88.0 Allergy status to penicillin
CPT/HCPCS: 99284; 96372; 36415; 87086; 87210; 83690; 85025; 81025; 80053; 81001; 87491; 87591; 76830; 93976; S0119; J0696

== ENCOUNTER 2018-08-28 02:30 | Emergency (ER) | payer SELFPAY ==
[2018-08-28] MEDS ORDERED: DEXAMETHASONE SOD PHOS INJ 10 MG/1 ML VIAL IM ONE (03:09)
[2018-08-28] MEDS ORDERED: LIDOCAINE 2% INJ-PF (20 MG/ML) 10 ML AMPUL NEB ONE (03:09)
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
--- NOTE | 2018-08-28 03:46 | RADIOLOGY REPORT (SQ) ---
EXAM DESCRIPTION: XR NECK SOFT TISSUE COMPLETED DATE/TME: 08/28/2018 03:09 CLINICAL HISTORY: 33 years Female, dyspnea COMPARISON: None. Findings: Patent nasopharynx and airway. No radiopaque foreign body. Normal prevertebral soft tissues. Normal alignment, curvature, and vertebral heights of the cervical spine. Bones, joints, and soft tissues of the XR NECK SOFT TISSUE 3 VIEWS appear otherwise unremarkable. IMPRESSION: No acute findings.
[2018-08-28 05:17] VITALS: BP 145/98
== END 2018-08-28 06:40 | disposition home or self-care (01) ==
LOC: ER 02:30
DX: K12.0 Recurrent oral aphthae (principal); R05 Cough; Z88.0 Allergy status to penicillin
CPT/HCPCS: 94640; 99283; 96372; 70360; J3490; J1100

== ENCOUNTER 2018-09-08 10:01 | Emergency (ER) | payer SELFPAY ==
[2018-09-08] MEDS ORDERED: KETOROLAC TROMETHAMINE INJ/PF 30 MG/1 ML SDV IV ONE (10:30)
[2018-09-08] MEDS ORDERED: DIPHENHYDRAMINE HCL 50 MG/ML VIAL IV ONE (10:30)
[2018-09-08] MEDS ORDERED: NORMAL SALINE 1000 ML 1,000 ML IV ONE (10:30)
--- NOTE | 2018-09-08 10:34 | ER Document Report ---
ED General - General Mode of Arrival: Ambulatory Information source: Patient TRAVEL OUTSIDE OF THE [place] IN LAST 30 DAYS: No <NOEMY MILLER - Last Filed: 09/08/18 11:16> <HAMIDA YANES - Last Filed: 09/08/18 15:59> - General Chief Complaint: Chest Pain Stated Complaint: CHEST PAIN Time Seen by Provider: 09/08/18 10:16 Notes: 33-year-old female who presents to the emergency department today with complaints of left anterior chest wall pain, left shoulder pain, and left upper back pain that began at 0400 this morning. Patient states she was awake at 0400 this morning when her pain began. Patient states her pain increases with deep breathing. Patient states she has had associated nausea and dizziness. Patient mentions she recently had "anaphylaxis from a spider bite". (NOEMY MILLER) - Related Data Allergies/Adverse Reactions: Penicillins Allergy (Verified 09/08/18 10:04) Past Medical History - General Information source: Patient - Social History Smoking Status: Never Smoker Cigarette use (# per day): No - Family History: Reviewed & Not Pertinent Pulmonary Medical History: Reports: Hx Pneumonia Renal/ Medical History: Denies: Hx Peritoneal Dialysis Past Surgical History: Reports: Hx Tonsillectomy - Immunizations Hx Diphtheria, Pertussis, Tetanus Vaccination: Yes <NOEMY MILLER - Last Filed: 09/08/18 11:16> Review of Systems - Review of Systems Constitutional: No symptoms reported EENT: No symptoms reported Cardiovascular: See HPI, Chest pain, Dizziness Respiratory: No symptoms reported Gastrointestinal: See HPI, Nausea Genitourinary: No symptoms reported Female Genitourinary: No symptoms reported Musculoskeletal: See HPI, Back pain - left upper back pain, Other - left shoulder pain Skin: No symptoms reported Hematologic/Lymphatic: No symptoms reported Neurological/Psychological: No symptoms reported -: Yes All other systems reviewed and negative <NOEMY MILLER - Last Filed: 09/08/18 11:16> Physical Exam <NOEMY MILLER - Last Filed: 09/08/18 11:16> <HAMIDA YANES - Last Filed: 09/08/18 15:59> - Vital signs Vitals: Temp Pulse Resp BP Pulse Ox 97.4 F 96 18 120/87 H 96 09/08/18 10:05 09/08/18 10:05 09/08/18 10:05 09/08/18 10:05 09/08/18 10:05 - Notes Notes: Physical Exam: General: Alert, anxious. Hyperventilating, unable to complete a full sentence due to hyperventilation. HEENT: Normocephalic. Atraumatic. PERRL. Extraocular movements intact. Oropharynx clear. Neck: Supple. Non-tender. Respiratory: No respiratory distress. Hyperventilating. Clear and equal breath sounds bilaterally. Left anterior chest wall ttp, no right anterior chest wall ttp. Cardiovascular: Regular rate and rhythm. Abdominal: Normal Inspection. Non-tender. No distension. Normal Bowel Sounds. Back: Left medial scapula and trapezius tenderness with palpation, no right medial scapula or trapezius ttp. no deformity or step off. Extremities: Moves all four extremities. Upper extremities: Left anterior shoulder ttp. Normal ROM. Lower extremities: Normal inspection. No edema. Normal ROM. Neurological: Normal cognition. AAOx4. Normal speech. Psychological: Anxious. Skin: Warm. Dry. Normal color. (NOEMY MILLER) Course - Laboratory Result Diagrams: 09/08/18 10:30 09/08/18 10:30 <NOEMY MILLER - Last Filed: 09/08/18 11:16> - Laboratory Result Diagrams: 09/08/18 10:30 09/08/18 10:30 - Diagnostic Test Radiology reviewed: Image reviewed, Reports reviewed - Chest x-ray is unremarkable - EKG Interpretation by Ut EKG shows normal: Sinus rhythm, Gleason, Intervals, QRS Complexes, ST-T Waves Rate: Normal - 87 Rhythm: NSR <HAMIDA YANES - Last Filed: 09/08/18 15:59> - Re-evaluation Re-evalutation: 09/08/18 12:06 Patient is now sleeping. I suspect the Benadryl has kicked in. Sed rate is quite low, the rest of the lab work is unremarkable other than an unexplained slightly elevated total bilirubin. She will be advised to follow-up with your primary care provider to follow her liver enzymes. 09/08/18 15:58 A sling was placed on the patient's left arm. It fits well, provides support for the weight of the arm allowing the patient to relax the shoulder girdle muscles. (HAMIDA YANES) - Vital Signs Vital signs: Temp Pulse Resp BP Pulse Ox 97.4 F 96 18 104/66 100 09/08/18 10:05 09/08/18 10:05 09/08/18 12:01 09/08/18 12:01 09/08/18 12:01 - Laboratory Laboratory results interpreted by me: 09/08/18 10:30 Carbon Dioxide 21 L Glucose 113 H Total Bilirubin 2.3 H Discharge <NOEMY MILLER - Last Filed: 09/08/18 11:16> <HAMIDA YANES - Last Filed: 09/08/18 15:59> - Discharge Clinical Impression: Muscle strain of left scapular region Qualifiers: Encounter type: initial encounter Qualified Code(s): S46.912A - Strain of unspecified muscle, fascia and tendon at shoulder and upper arm level, left arm , initial encounter Left shoulder pain Qualifiers: Chronicity: acute Qualified Code(s): M25.512 - Pain in left shoulder Condition: Stable Disposition: HOME, SELF-CARE Additional Instructions: Scapular and Trapezius muscle Strain: You have probably strained the medial scapular muscles and trapezius muscles on your left side. This often occurs with strenuous exertion, or during an injury that suddenly stretches the muscle. The seriousness of a strain varies. Some strains heal within days, others cause problems for months. X-rays cannot show a muscle strain. X-rays are taken only if symptoms suggest that a fracture could be present. The usual treatment of a muscle strain is rest and ice packs. Sometimes, a sling will help to rest the muscle. The muscle can be used again once pain subsides. Severe strains require a special exercise and stretching program to prevent permanent stiffness and disability. Your doctor will advise you if this will be necessary. Call the doctor immediately if pain or swelling becomes severe, or if numbness or discoloration develop. Use the sling to support your arm and allow the muscles around your shoulder to relax. Take ibuprofen 800 mg every 8 hours, or Aleve 2 tablets every 12 hours for the pain and inflammation. Follow-up with a primary care provider if not improving over the next few days. RETURN TO THE EMERGENCY ROOM IF ANY NEW OR WORSENING SYMPTOMS. Forms: Return to Work Scribe Attestation: 09/08/18 11:13 I personally performed the services described in the documentation, reviewed and edited the documentation which was dictated to the scribe in my presence, and it accurately records my words and actions. (HAMIDA YANES) Scribe Documentation - Scribe Written by Theron:: Theron Kenney, 09/08/2018 [id number] acting as scribe for :: Betsy <NOEMY MILLER - Last Filed: 09/08/18 11:16>
[2018-09-08] MEDS ORDERED: DIPHENHYDRAMINE HCL 25 MG CAPSULE PO ONE (10:40)
[2018-09-08 10:42] LABS: ABSOLUTE BASOPHILS # (AUTO) 0.1 10^3/uL (0.0-0.2); ABSOLUTE EOSINOPHILS # (AUTO) 0.1 10^3/uL (0.0-0.6); ABSOLUTE LYMPHOCYTES (AUTO) 2.5 10^3/uL (0.5-4.7); ABSOLUTE MONOCYTES (AUTO) 0.4 10^3/uL (0.1-1.4); ABSOLUTE NEUT (AUTO) 2.8 10^3/uL (1.7-8.2); BASOPHILS % (AUTO) 0.9 % (0-2); EOSINOPHILS % (AUTO) 1.3 % (0-6); HEMATOCRIT 43.2 % (36.0-47.0); HEMOGLOBIN 15.1 g/dL (12.0-15.5); LYMPHOCYTES % (AUTO) 42.6 % (13-45); MEAN CORPUSCULAR HEMOGLOBIN 32.2 pg (27.0-33.4); MEAN CORPUSCULAR HGB CONC 34.8 g/dL (32.0-36.0); MEAN CORPUSCULAR VOLUME 92 fl (80-97); MONOCYTES % (AUTO) 6.9 % (3-13); PLATELET COUNT 314 10^3/uL (150-450); RED BLOOD COUNT 4.68 10^6/uL (3.72-5.28); SEGMENTED NEUTROPHILS % (AUTO) 48.3 % (42-78); TOTAL CELLS COUNTED % (AUTO) 100 %; WHITE BLOOD COUNT 5.8 10^3/uL (4.0-10.5)
[2018-09-08] MEDS ORDERED: ONDANSETRON HCL INJ/PF 4 MG/2 ML SDV IV ONE (10:49)
--- NOTE | 2018-09-08 10:54 | RADIOLOGY REPORT (SQ) ---
EXAM DESCRIPTION: CHEST SINGLE VIEW COMPLETED DATE/TIME: 09/08/2018 10:43 am REASON FOR STUDY: Chest pain COMPARISON: 02/23/2018 EXAM PARAMETERS: NUMBER OF VIEWS: One view. TECHNIQUE: Single frontal radiographic view of the chest acquired. RADIATION DOSE: NA LIMITATIONS: None. FINDINGS: LUNGS AND PLEURA: No opacities, masses or pneumothorax. No pleural effusion. MEDIASTINUM AND HILAR STRUCTURES: No masses. Contour normal. HEART AND VASCULAR STRUCTURES: Heart normal in size. Normal vasculature. BONES: No acute findings. HARDWARE: None in the chest. OTHER: No other significant finding. IMPRESSION: NO ACUTE RADIOGRAPHIC FINDING IN THE CHEST. TECHNICAL DOCUMENTATION: JOB ID: [id number] [employer]- All Rights Reserved Reading location - IP/workstation name: [email or web address]
[2018-09-08 11:02] LABS: ALANINE AMINOTRANSFERASE 20 U/L (9-52); ALBUMIN 4.8 g/dL (3.5-5.0); ALKALINE PHOSPHATASE 61 U/L (38-126); ANION GAP 15 (5-19); ASPARTATE AMINO TRANSFERASE 30 U/L (14-36); BILIRUBIN,DIRECT 0.3 mg/dL (0.0-0.4); BILIRUBIN,TOTAL 2.3 mg/dL (0.2-1.3); BLOOD UREA NITROGEN 12 mg/dL (7-20); CARBON DIOXIDE 21 mmol/L (22-30); CHLORIDE 105 mmol/L (98-107); CREATINE KINASE 42 U/L (30-135); GLUCOSE 113 mg/dL (75-110); POTASSIUM 3.7 mmol/L (3.6-5.0)
[2018-09-08 11:21] LABS: ERYTHROCYTE SEDIMENTATION RATE 17 mm/hr (0-20)
[2018-09-08 12:30] VITALS: BP 104/66
--- NOTE | 2018-09-08 22:25 | EKG REPORT ---
SEVERITY:- NORMAL ECG - SINUS RHYTHM : Confirmed by: Clara Nugent MD 08-Sep-2018 22:24:44
== END 2018-09-08 12:30 | disposition home or self-care (01) ==
LOC: ER 10:01
DX: S46.912A Strain of unspecified muscle, fascia and tendon at shoulder and upper arm level, left arm, initial encounter (principal); M25.512 Pain in left shoulder; R07.89 Other chest pain; M54.6 Pain in thoracic spine; R11.0 Nausea; R42 Dizziness and giddiness; X58.XXXA Exposure to other specified factors, initial encounter
CPT/HCPCS: 93005; 99285; 96361; 96374; 96375; 36415; 82550; 85025; 85652; 80053; 84484; 71045; 93010; J1885; J2405; J7030

== ENCOUNTER 2019-08-05 06:00 | Emergency (ER) | payer SELFPAY ==
[2019-08-05 07:14] LABS: ABSOLUTE BASOPHILS # (AUTO) 0.1 10^3/uL (0.0-0.2); ABSOLUTE EOSINOPHILS # (AUTO) 0.3 10^3/uL (0.0-0.6); ABSOLUTE LYMPHOCYTES (AUTO) 2.9 10^3/uL (0.5-4.7); ABSOLUTE MONOCYTES (AUTO) 0.5 10^3/uL (0.1-1.4); ABSOLUTE NEUT (AUTO) 3.9 10^3/uL (1.7-8.2); EOSINOPHILS % (AUTO) 4.5 % (0-6); HEMATOCRIT 42.4 % (36.0-47.0); HEMOGLOBIN 14.5 g/dL (12.0-15.5); LYMPHOCYTES % (AUTO) 37.6 % (13-45); MEAN CORPUSCULAR HGB CONC 34.1 g/dL (32.0-36.0); MEAN CORPUSCULAR VOLUME 94 fl (80-97); MONOCYTES % (AUTO) 6.5 % (3-13); PLATELET COUNT 298 10^3/uL (150-450); RED BLOOD COUNT 4.52 10^6/uL (3.72-5.28); RED CELL DISTRIBUTION WIDTH 12.9 % (11.5-14.0); SEGMENTED NEUTROPHILS % (AUTO) 50.4 % (42-78); TOTAL CELLS COUNTED % (AUTO) 100 %; WHITE BLOOD COUNT 7.7 10^3/uL (4.0-10.5)
[2019-08-05 07:27] LABS: ALBUMIN 4.1 g/dL (3.5-5.0); ALKALINE PHOSPHATASE 64 U/L (38-126); ANION GAP 6 (5-19); ASPARTATE AMINO TRANSFERASE 19 U/L (14-36); BILIRUBIN,DIRECT 0.2 mg/dL (0.0-0.4); BILIRUBIN,TOTAL 1.2 mg/dL (0.2-1.3); BLOOD UREA NITROGEN 10 mg/dL (7-20); CALCIUM 9.8 mg/dL (8.4-10.2); CARBON DIOXIDE 27 mmol/L (22-30); CHLORIDE 104 mmol/L (98-107); CREATINE KINASE 35 U/L (30-135); GLUCOSE 89 mg/dL (75-110); POTASSIUM 3.8 mmol/L (3.6-5.0); TOTAL PROTEIN 6.6 g/dL (6.3-8.2)
[2019-08-05 07:40] LABS: CREATINE KINASE MB < 0.22 ng/mL (<4.55); TROPONIN I < 0.012 ng/mL
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
[2019-08-05] MEDS ORDERED: MORPHINE SULFATE 10 MG/ML INJ IV ONE (08:57)
[2019-08-05] MEDS ORDERED: ONDANSETRON HCL INJ/PF 4 MG/2 ML SDV IV ONE (08:57)
--- NOTE | 2019-08-05 09:57 | RADIOLOGY REPORT (SQ) ---
EXAM DESCRIPTION: CHEST SINGLE VIEW COMPLETED DATE/TIME: 08/05/2019 9:33 am REASON FOR STUDY: chest pain COMPARISON: None. NUMBER OF VIEWS: One view. TECHNIQUE: Single frontal radiographic view of the chest acquired. LIMITATIONS: None. FINDINGS: LUNGS AND PLEURA: No opacities, masses or pneumothorax. No pleural effusion. MEDIASTINUM AND HILAR STRUCTURES: No masses. Contour normal. HEART AND VASCULAR STRUCTURES: Heart normal in size. Normal vasculature. BONES: No acute findings. HARDWARE: None in the chest. OTHER: No other significant finding. IMPRESSION: NO SIGNIFICANT RADIOGRAPHIC FINDING IN THE CHEST. TECHNICAL DOCUMENTATION: JOB ID: [id number] [employer]- All Rights Reserved Reading location - IP/workstation name: [email or web address]
[2019-08-05] MEDS ORDERED: NORMAL SALINE 1000 ML 1,000 ML IV ONE (10:57)
[2019-08-05] MEDS ORDERED: LIDOCAINE 2% VISCOUS SOLN 20 ML UDCUP PO ONE (10:58)
[2019-08-05] MEDS ORDERED: KETOROLAC TROMETHAMINE INJ/PF 30 MG/1 ML SDV IV ONE ×2 (10:58→12:12)
[2019-08-05] MEDS ORDERED: MAG HYDROX/AL HYDROX/SIMETH SUSP 30 ML UDCUP PO ONE (10:58)
[2019-08-05 12:22] VITALS: BP 105/88
--- NOTE | 2019-08-06 18:30 | EKG REPORT ---
SEVERITY:- NORMAL ECG - SINUS RHYTHM : Confirmed by: Kenneth Soni 06-Aug-2019 18:30:21
== END 2019-08-05 12:26 | disposition home or self-care (01) ==
LOC: ER 06:00
DX: R07.9 Chest pain, unspecified (principal); R51 Headache; R11.0 Nausea; F17.200 Nicotine dependence, unspecified, uncomplicated; F12.10 Cannabis abuse, uncomplicated; Z88.0 Allergy status to penicillin; Z82.49 Family history of ischemic heart disease and other diseases of the circulatory system
CPT/HCPCS: 93005; 36415; 82553; 82550; 83690; 85025; 80053; 84484; 71045; 93010; J3490; J1885; J2270; J2405; J7030; 96361; 96374; 96375; 96376; 99285

== ENCOUNTER 2020-09-09 11:10 | Emergency (ER) | payer SELFPAY ==
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
[2020-09-09 12:06] LABS: ABSOLUTE BASOPHILS # (AUTO) 0.1 10^3/uL (0.0-0.2); ABSOLUTE EOSINOPHILS # (AUTO) 0.1 10^3/uL (0.0-0.6); ABSOLUTE MONOCYTES (AUTO) 0.4 10^3/uL (0.1-1.4); ABSOLUTE NEUT (AUTO) 5.9 10^3/uL (1.7-8.2); BASOPHILS % (AUTO) 1.1 % (0-2); EOSINOPHILS % (AUTO) 1.2 % (0-6); HEMATOCRIT 45.5 % (36.0-47.0); HEMOGLOBIN 15.9 g/dL (12.0-15.5); LYMPHOCYTES % (AUTO) 23.1 % (13-45); MEAN CORPUSCULAR VOLUME 92 fl (80-97); MONOCYTES % (AUTO) 5.1 % (3-13); PLATELET COUNT 369 10^3/uL (150-450); RED BLOOD COUNT 4.97 10^6/uL (3.72-5.28); RED CELL DISTRIBUTION WIDTH 13.1 % (11.5-14.0); SEGMENTED NEUTROPHILS % (AUTO) 69.5 % (42-78); TOTAL CELLS COUNTED % (AUTO) 100 %; WHITE BLOOD COUNT 8.5 10^3/uL (4.0-10.5)
[2020-09-09 12:32] LABS: ALBUMIN 5.1 g/dL (3.5-5.0); ALKALINE PHOSPHATASE 87 U/L (38-126); ANION GAP 14 (5-19); ASPARTATE AMINO TRANSFERASE 29 U/L (14-36); BILIRUBIN,DIRECT 0.2 mg/dL (0.0-0.4); BILIRUBIN,TOTAL 1.2 mg/dL (0.2-1.3); BLOOD UREA NITROGEN 10 mg/dL (7-20); CALCIUM 10.5 mg/dL (8.4-10.2); CARBON DIOXIDE 19 mmol/L (22-30); CHLORIDE 105 mmol/L (98-107); GLUCOSE 113 mg/dL (75-110); POTASSIUM 4.1 mmol/L (3.6-5.0); TOTAL PROTEIN 8.2 g/dL (6.3-8.2)
[2020-09-09 12:34] LABS: ALCOHOL < 10 mg/dL (NONE DETECTED)
--- NOTE | 2020-09-09 13:18 | RADIOLOGY REPORT (SQ) ---
EXAM DESCRIPTION: CHEST 2 VIEWS IMAGES COMPLETED DATE/TIME: 09/09/2020 12:57 pm REASON FOR STUDY: chest pain COMPARISON: 08/05/2019 EXAM PARAMETERS: NUMBER OF VIEWS: two views TECHNIQUE: Digital Frontal and Lateral radiographic views of the chest acquired. RADIATION DOSE: NA LIMITATIONS: none FINDINGS: LUNGS AND PLEURA: There is a 13 mm nodule projected over the right lower lung field. This could represent a nipple shadow. MEDIASTINUM AND HILAR STRUCTURES: No masses or contour abnormalities. HEART AND VASCULAR STRUCTURES: Heart normal size. No evidence for failure. BONES: No acute findings. HARDWARE: None in the chest. OTHER: No other significant finding. IMPRESSION: Pulmonary nodule versus nipple shadow on the right. Consider repeat film with elvaple abril berumen. TECHNICAL DOCUMENTATION: JOB ID: [id number] [employer]- All Rights Reserved Reading location - IP/workstation name: [email or web address]
[2020-09-09 13:32] LABS: APPEARANCE,URINE CLEAR; BILIRUBIN,URINE NEGATIVE (NEGATIVE); COLOR,URINE YELLOW; GLUCOSE, URINE NEGATIVE (NEGATIVE); KETONES,URINE TRACE mg/dL (NEGATIVE); LEUKOCYTE ESTERASE,URINE LARGE (NEGATIVE); NITRITE,URINE NEGATIVE (NEGATIVE); PROTEIN,URINE NEGATIVE (NEGATIVE); URINE SPECIFIC GRAVITY 1.005; UROBILINOGEN,URINE NEGATIVE mg/dL (<2.0)
[2020-09-09] MEDS ORDERED: ONDANSETRON HCL INJ/PF 4 MG/2 ML SDV IV ONE (13:49)
[2020-09-09] MEDS ORDERED: NORMAL SALINE 1000 ML 1,000 ML IV ONE (13:49)
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
[2020-09-09 15:31] LABS: URINE BARBITURATES SCREEN NEGATIVE; URINE BENZODIAZEPINES SCREEN NEGATIVE; URINE COCAINE SCREEN NEGATIVE; URINE METHADONE SCREEN NEGATIVE; URINE PHENCYCLIDINE SCREEN NEGATIVE
[2020-09-09 15:32] LABS: URINE AMPHETAMINES SCREEN UNCONFIRMED POSITIVE; URINE MARIJUANA (THC) SCREEN UNCONFIRMED POSITIVE
[2020-09-09] MEDS ORDERED: LORAZEPAM INJ 2 MG/1 ML VIAL IV ONE (16:32)
[2020-09-09 17:16] VITALS: BP 113/82
--- NOTE | 2020-09-09 19:48 | EKG REPORT ---
SEVERITY:- OTHERWISE NORMAL ECG - SINUS TACHYCARDIA : Confirmed by: Kenneth Soni 09-Sep-2020 19:47:23
== END 2020-09-09 17:18 | disposition left against medical advice (07) ==
LOC: ER 11:10
DX: R20.2 Paresthesia of skin (principal); R07.9 Chest pain, unspecified; R20.0 Anesthesia of skin; F17.200 Nicotine dependence, unspecified, uncomplicated
CPT/HCPCS: 93005; 99281; 96361; 96374; 96375; 36415; 80307 ×2; 85025; 81025; 80053; 81001; 84484; 71046; 93010; J2405; J7030